=== PATIENT | male | born 1960 | race Caucasian/White ===

== ENCOUNTER 2023-09-05 08:33 | Outpatient (CLI) | payer BC | END 2023-09-05 19:23 | disposition home or self-care (01) | LOC: SCT 08:33 | PROVIDERS: ATTEND Student in an Organized Health Care Education/Training Program | DX: M17.11 Unilateral primary osteoarthritis, right knee (principal) ==

== ENCOUNTER 2023-09-23 05:10 | Day surgery (SDC) | payer BC ==
[2023-09-02 11:39] LABS: BASOPHILS % (AUTO) 0.4 % (0.0-2.0); EOSINOPHILS # (AUTO) 0.1 K/uL (0.0-0.4); EOSINOPHILS % (AUTO) 1.7 % (0.0-4.0); HEMATOCRIT 45.8 % (36-54); HEMOGLOBIN 15.7 g/dL (14.0-18.0); LYMPHOCYTES # (AUTO) 1.6 K/uL (1.0-5.5); LYMPHOCYTES % (AUTO) 24.3 % (20.5-51.5); MEAN CORPUSCULAR HEMOGLOBIN 32 pg (27-31); MEAN CORPUSCULAR HGB CONC 34 % (32-36); MEAN CORPUSCULAR VOLUME 92 fL (79.0-98.0); MONOCYTES # (AUTO) 0.4 K/uL (0.0-1.0); MONOCYTES % (AUTO) 6.6 % (1.7-9.3); NEUTROPHILS # (AUTO) 4.3 K/uL (1.8-7.7); PLATELET COUNT (AUTO) 225 K/uL (130-430); RED BLOOD CELL COUNT(AUTO) 4.98 MIL/uL (4.2-6.2); RED CELL DISTRIBUTION WIDTH 13.5 % (9.0-15.0); WHITE BLOOD COUNT (AUTO) 6.5 K/uL (4.8-10.8)
[2023-09-02 12:12] LABS: ALBUMIN 4.3 g/dL (3.4-4.8); CALCIUM 9.3 mg/dL (8.4-11.0); CREATININE 0.83 mg/dL (0.55-1.30); POTASSIUM 3.8 mmol/L (3.5-5.1); TOTAL BILIRUBIN 1.1 mg/dL (0.0-1.0); TOTAL PROTEIN, SERUM 7.6 g/dL (6.4-8.3)
[2023-09-02 12:27] LABS: INR 1.1 (0.80-1.20)
[~2023-09-23] VITALS: Ht 177.8 cm; Wt 111.6 kg
[2023-09-23] MEDS ORDERED: ACETAMINOPHEN 500 MG TABLET ONE (05:37)
[2023-09-23] MEDS ORDERED: CELECOXIB 100 MG CAPSULE ONE (05:37)
[2023-09-23] MEDS ORDERED: SCOPOLAMINE HYDROBROMIDE 1 MG PATCH .72 H (TRANSDERM-SCOP) TD ONE (05:38)
[2023-09-23] MEDS: CELECOXIB 100 MG CAPSULE PO ONE (06:00)
[2023-09-23] MEDS ORDERED: CEFAZOLIN SOD 2 GM in D5W 50 ML IV ONE (06:00)
[2023-09-23] MEDS: SCOPOLAMINE HYDROBROMIDE 1 MG PATCH .72 H (TRANSDERM-SCOP) TD ONE (06:00)
[2023-09-23] MEDS: ACETAMINOPHEN 500 MG TABLET PO ONE (06:00)
[2023-09-23] MEDS ORDERED: GABAPENTIN 300 MG CAPSULE ONE (06:04)
[2023-09-23] MEDS: GABAPENTIN 300 MG CAPSULE PO ONE (06:30)
[2023-09-23] MEDS ORDERED: LACTULOSE 20 GM/30 ML UDC PO PRN (07:00)
[2023-09-23] MEDS ORDERED: METOCLOPRAMIDE HCL 10 MG/2 ML VIAL IVP PRN ×2 (07:00→08:00)
[2023-09-23] MEDS ORDERED: ceFAZolin SODIUM 1 GM VIAL ONE (07:00)
[2023-09-23] MEDS ORDERED: BISACODYL 10 MG/SUPPOSITORY RC PRN (07:00)
[2023-09-23] MEDS: oxyCODONE HCL 10 MG TAB.ER.12H PO ONE (07:00)
[2023-09-23] MEDS ORDERED: DIPHENHYDRAMINE HCL 25 MG CAPSULE PO PRN (07:00)
[2023-09-23] MEDS ORDERED: HYDROmorphone 1 MG/ML INJ. CARTRIDGE IVP PRN ×4 (08:00→11:00)
[2023-09-23] MEDS ORDERED: LABETALOL 100 MG/ 20ML VIAL IVP PRN (08:00)
[2023-09-23] MEDS ORDERED: MEPERIDINE HCL/PF 25 MG/ML DISP.SYRIN IVP PRN (08:00)
[2023-09-23] MEDS ORDERED: LR 1,000 ML IV SCH (08:00)
[2023-09-23] MEDS ORDERED: oxyCODONE HCL 10 MG TAB.ER.12H PO ONE (08:41)
[2023-09-23] MEDS ORDERED: HYDROmorphone 1 MG/ML INJ. CARTRIDGE ONE (10:34)
[2023-09-23] MEDS: HYDROmorphone 1 MG/ML INJ. CARTRIDGE IVP PRN (10:35)
[2023-09-23] MEDS ORDERED: oxyCODONE HCL 5 MG TABLET PO PRN ×2 (11:00)
[2023-09-23] MEDS ORDERED: traMADol HCL HCL 50 MG TABLET (ULTRAM) PO PRN (11:00)
[2023-09-23] MEDS ORDERED: LORATADINE 10 MG TABLET PO PRN (11:00)
[2023-09-23] MEDS ORDERED: TAMSULOSIN HCL 0.4 MG CAP PO ONE ×2 (11:00→13:45)
[2023-09-23] MEDS ORDERED: ceFAZolin SODIUM 2 GM in D5W 50 ML IV SCH (11:15)
[2023-09-23 11:23] VITALS: BP_SYST 144; PULSE 59; RESP 16; TEMP 97; O2SAT 98
[2023-09-23] MEDS ORDERED: ONDANSETRON HCL 4 MG/2 ML VIAL IVP PRN (11:45)
[2023-09-23] MEDS ORDERED: hydrALAZINE HCL 20 MG/ML VIAL ONE (12:47)
[2023-09-23] MEDS: hydrALAZINE HCL 20 MG/ML VIAL IVP PRN (12:50)
[2023-09-23] MEDS ORDERED: ACETAMINOPHEN 500 MG TABLET PO SCH (14:00)
[2023-09-23] MEDS ORDERED: KETOROLAC TROMETHAMINE 10 MG TABLET (TORADOL) PO SCH (14:00)
[2023-09-23] MEDS ORDERED: SENNOSIDES/DOCUSATE SODIUM 1 TAB TABLET(SENOKOT-S) PO SCH (21:00)
[2023-09-24] MEDS ORDERED: TAMSULOSIN HCL 0.4 MG CAP PO SCH (09:00)
[2023-09-24] MEDS ORDERED: ASPIRIN 81 MG TAB.CHEW PO SCH (09:00)
[2023-09-24] MEDS ORDERED: CELECOXIB 200 MG CAPSULE PO SCH (11:00)
== END 2023-09-23 16:00 | disposition home or self-care (01) ==
LOC: SDS 05:10 → SMU 05:10 → SDS 16:00
PROVIDERS: ATTEND Student in an Organized Health Care Education/Training Program
DX: M17.11 Unilateral primary osteoarthritis, right knee (principal); M25.561 Pain in right knee; M25.761 Osteophyte, right knee; I10 Essential (primary) hypertension; E78.5 Hyperlipidemia, unspecified; E66.9 Obesity, unspecified; G89.18 Other acute postprocedural pain; Z68.35 Body mass index [BMI] 35.0-35.9, adult; Z98.890 Other specified postprocedural states; Z82.49 Family history of ischemic heart disease and other diseases of the circulatory system; Z83.3 Family history of diabetes mellitus; Z79.899 Other long term (current) drug therapy
CPT/HCPCS: 80053; 85025; 85610; 85730; 87081; 36415; 71046; 27447; 97162; 64447; 73560; 97110; 97530; 97116; 88305; 88311; J3490 ×2; J0690; J0696; J1100; J0360; J2405; J3370; J1170; J7060 ×2; J7120; C1776 ×3; C1713 ×4